=== PATIENT | female | born 1955 | race Caucasian/White ===

== ENCOUNTER → 2023-09-20 | Outpatient (CLI) | payer MEDICARE ==
[~2023-09-20] MED LIST: ADVAIR HFA 230-28 GM INH; ALBU90OI INH; IPRATROPIUM BRO30 ML; MONT10T PO
== END ==
LOC: LAB SHORT 12:02 → LAB 12:02
DX: L92.9 Granulomatous disorder of the skin and subcutaneous tissue, unspecified (principal); T81.42XD Infection following a procedure, deep incisional surgical site, subsequent encounter; L03.119 Cellulitis of unspecified part of limb
CPT/HCPCS: 87070; 87071; 87075; 87205; 88305